=== PATIENT | male | born 1995 | race Caucasian/White ===

== ENCOUNTER 2019-02-20 15:50 | Emergency (ER) | payer SELFPAY ==
[~2019-02-20] VITALS: Ht 157.5 cm; Wt 63.0 kg
[2019-02-20 15:58] VITALS: BP 125/78; PULSE 79; RESP 16; Ht 157.5 cm; Wt 63.0 kg
[2019-02-20] MEDS ORDERED: KETOROLAC 30 MG INJ IM STA (16:54)
[2019-02-20] MEDS ORDERED: ACET-141 PO (17:06)
[2019-02-20] MEDS ORDERED: IBUP-1561 PO (17:06)
[2019-02-20] MEDS ORDERED: METH750T93 PO (17:06)
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
== END 2019-02-20 19:10 | disposition home or self-care (01) ==
LOC: FTE 15:50
DX: M79.604 Pain in right leg (principal); F17.210 Nicotine dependence, cigarettes, uncomplicated
CPT/HCPCS: 96372; J1885